=== PATIENT | male | born 1935 | race Caucasian/White ===

== ENCOUNTER 2016-08-02 09:08 | Outpatient (CLI) ==
[2016-07-28 16:08] VITALS: BMI 30.5
--- NOTE | 2016-08-08 10:40 | HOLTER ---
PATIENT INFORMATION AND COMMENTS Indications: PALPITATIONS __ Patient Medications: PENTASA, OMEPRAZOLE, PRAVASTATIN, SINGULAIR, DIGOXIN, METOPROLOL, LOSARTAN, FLUTICASONE, SPIRIVA __ Pre-procedure Summary: Protocol: Standard Heart Rate Started: 08/02/16918 Minimum: 50/MIN Weight: 226 LBS Ended: 08/03/16918 Maximum: 130/MIN Height: 72" Duration: 24 HOURS Average: 71 _ INTERPRETATIONS/OBSERVATIONS: 1. BASIC RHYTHM-SINUS, RATE 50/MIN TO 130/MIN, AVERAGE 70/MIN 2. INFREQUENT TO RARE PAC'S/PVC'S 3. EPISODE OF ATRIAL FLUTTER NOTED WITH VARYING DEGREE OF AV BLOCK FOR 4 TO 5 SECONDS 4. FEW--3 TO 6 RUNS OF 5 BEAT SVT/A-FIB NOTED 5. NO ST-T WAVE CHANGES FROM BASELINE 6. ACTIVITY LOG NOT MAINTAINED. MTDD
== END 2016-08-02 09:09 | disposition home or self-care (01) ==
LOC: CAR 09:08
PROVIDERS: ATTEND Family Medicine
DX: I10 Essential (primary) hypertension (principal); R07.9 Chest pain, unspecified; R00.2 Palpitations

== ENCOUNTER 2016-11-04 07:56 | Outpatient (CLI) ==
[2016-07-28 16:08] VITALS: BMI 30.5
--- NOTE | 2016-11-04 14:52 | NM ---
EXAM: Whole-body bone scan. HISTORY: The patient reports prostate cancer 10 years ago. The patient complains of severe neck ophelia n with no known injury. COMPARISON: None of this type. PROCEDURE: The patient was injected with 26.3 mCi of 99m technetium HDP intravenously. After an anival ropriate interval, whole-body anterior and posterior images were obtained. Additional spot images w ere obtained. FINDINGS: There is increased activity in the lower lumbar region primarily at the L4 level which by appearance is most likely to represent degenerative change. The thoracic and lumbar spine are otherw ise unremarkable in appearance for age. The ribcage is normal in appearance. There is increased act ivity in the acetabuli greater on the right which may also be associated with degenerative change. T he pelvic skeleton is otherwise normal in appearance. The kidneys and bladder demonstrate normal, p hysiologic activity. The lower extremeties demonstrate age appropriate activity in the major joints . In addition, there is increased activity in the right knee compatible with degenerative arthritis and around the margins of the patient's left knee prosthesis. Additional note is made of increased activity in the ankles and feet particularly in the right ankle. The upper extremeties demonstrate a ge appropriate levels of activity in the major joints. There is increased activity in the shoulders and sternoclavicular joints and first costosternal articulations, likely benign. There is relatively modest increased activity in the mid cervical spine which may be associated with degenerative garza e and also at the cervicothoracic junction. There is increased activity in the maxilla and mandible which is likely associated with dental disease. The calvarium and face otherwise demonstrate a jumana l distribution of activity. IMPRESSION: 1. The bone scan demonstrates typical age related degenerative changes in the thoracic and lumbar sp ine with greater activity seen in the lumbar region at the L4 level. 2. The examination demonstrates modestly increased activity in the acetabuli greater on the right wh ich may be due to degenerative change. There is additional evidence of degenerative arthritis in th e right knee and of relatively increased activity around the left knee prosthesis. This might indica te loosening in a symptomatic patient but is otherwise unremarkable as there is considerable variabi lity in the level of activity seen around prostheses based on time post surgery and other factors. 3. There is modest increased activity in the mid cervical spine at the cervicothoracic junction. Fu rther evaluation with MRI is suggested to attempt to identify a cause for the patient's severe neck pain. 4. Additional details are listed in the report. 5. No overtly metastatic lesion is identified.
== END 2016-11-04 07:57 | disposition home or self-care (01) ==
LOC: RAD 07:56
PROVIDERS: ATTEND Family Medicine
DX: S22.000A Wedge compression fracture of unspecified thoracic vertebra, initial encounter for closed fracture (principal)

== ENCOUNTER 2016-11-14 13:05 | Outpatient (CLI) | payer OTHER ==
[2016-07-28 16:08] VITALS: BMI 30.5
--- NOTE | 2016-11-14 21:55 | MRI ---
EXAM: Cervical spine MRI with and without contrast. HISTORY: Neck pain. Previous reports indicate a prostate cancer history 10 years ago. COMPARISON: Nuclear medicine bone scan 11/04/2016. TECHNIQUE: Multiplanar, multisequence MR images were acquired of the cervical spine before and afte r administration of intravenous contrast. FINDINGS: The craniocervical junction is unremarkable and the cervical cord has normal signal inten sity. There is no abnormal leptomeningeal contrast enhancement. There is straightening of the usua l cervical lordosis and 1 mm anterolisthesis of C3 on C4, 1 mm retrolisthesis of C5 on C6 and 1.5 mm anterolisthesis of C7 on T1. There is ankylosis of the C4 and C5 vertebral bodies and posterior el ements. Ventral spondylosis is present in the cervical spine and there is osteophytosis with disc s pace narrowing and degenerative endplate changes at C5-6 and C6-7. Canal diameter is developmentall y narrow. Incidentally noted is a venous tejeda in the right paramidline occipital bone with an arach noid granulation. This is a common normal finding. There are no paravertebral masses. There is a 2 .5 mm x 5 mm T2 hyperintensity in the left hypopharynx that may represent a small submucosal cyst. The left lobe of the thyroid gland has a 6 mm AP by 6.4 mm TX by 1 cm CC T2 hyperintensity and on th e right lobe has a 1.5 cm AP by 0.9 cm TX by 2 cm CC T2 hyperintensity. These may represent adenoma s. Thyroid ultrasound could better define the anatomy. C2-3: The intervertebral disc is normal. There is mild to moderate bilateral hypertrophic facet art hropathy and ligamentum flavum hypertrophy which causes mild to moderate right neural foraminal sten osis. There is no central canal stenosis. C3-4: There is a posterior disc osteophyte complex with the disc component larger than the osteophy te component. This minimally indents the cervical cord. Ligamentum flavum hypertrophy, bilateral u ncovertebral hypertrophy and moderate to marked left and moderate right hypertrophic facet arthropat hy is present. There is mild spinal stenosis and moderate right and moderately severe left neural f oraminal stenosis. AP diameter of the thecal sac is 9 mm. C4-5: There is a midline dorsal bony ridge which effaces the ventral thecal sac and mild right and moderate left hypertrophic facet arthropathy with ankylosis of both facet joints. There is mild to moderate right and moderate left neural foraminal stenosis. C5-6: There is a posterior disc osteophyte complex with a more focal left paracentral component bonnie t minimally indents the cervical cord although cerebrospinal fluid is preserved around the cord. Li gamentum flavum hypertrophy, bilateral uncovertebral hypertrophy and bilateral hypertrophic facet ar thropathy is present, greater on the right. There is moderate right and severe left neural foramina l stenosis. C6-7: There is a diffuse disc osteophyte complex, ligamentum flavum hypertrophy, minor left uncover tebral hypertrophy and minor right and mild left facet arthropathy. There is no central canal steno sis. Mild right and moderate left neural foraminal stenosis is present. C7-T1: The intervertebral disc is normal. There is anterolisthesis of C7 on T1 which causes a pseu do disc bulge. Bilateral hypertrophic facet arthropathy and bilateral synovial cysts are present. There is no central canal stenosis or foraminal stenosis. IMPRESSION: 1. Moderate cervical degenerative spondylosis which causes mild spinal stenosis at C3-4. 2. Ankylosis C4 and C5 vertebral bodies and post elements. 3. No cervical disc herniations. 4. Multilevel foraminal stenosis.
== END 2016-11-14 13:06 | disposition home or self-care (01) ==
LOC: RAD 13:05
PROVIDERS: ATTEND Family Medicine
DX: M54.2 Cervicalgia (principal); C61 Malignant neoplasm of prostate; R93.7 Abnormal findings on diagnostic imaging of other parts of musculoskeletal system

== ENCOUNTER 2017-05-10 09:40 | Emergency (ER) | payer OTHER ==
[2017-05-10 09:44] VITALS: BP 183/86; TEMP 98.3; BMI 29.8
--- NOTE | 2017-05-10 10:29 | ED.PDOC ---
General ED Provider: Dr. JULIET SUTTON Chief Complaint: Dizziness Stated Complaint: This AM after breakfast patient felt "odd" suddenly and had a sensation of something shooting across his head from above left ear to same spot above right ear. Not painful. Has felt weak since. No focal neurologic symptoms. No N/V. Has frequent (for him) watery stools (X3 in 24 hours) which he blames on ulcerative colitis. Abdoment is mildly sore, also typical with UC for him. Denies any other symptoms. Time Seen by Physician: 10:19 Mode of Arrival: Walk-In Information Source: Patient Exam Limitations: No limitations Primary Care Provider: NICK ARMENTA Nursing and Triage Documentation Reviewed and Agree: Yes Miscellaneous Complaint Exam - Complex/Multi-System Complaint/Exam Onset/Duration: approx 2 hours ago Symptoms Are: Still present (but lessened considerably) Initial Severity: Moderate Current Severity: Mild Location of Pain: no pain Associated Signs and Symptoms: Reports: Abdominal pain Related History: Other (ulcerative colitis, mildly active now) Recent Echo/LV Function: No Respiratory Distress: None JVD Present: No Tachypnea Present: No Stridor Present: No Abdominal Findings: Present: Normal findings (except mild generalized tenderness ) Meningeal Signs Positive: No Focal Weakness: Present: None Focal Sensory Loss: Present: None Gait: Normal Gag Reflex Present: Yes Babinski Sign: Negative Right, Negative Left Skin Findings: Present: Normal findings Joint Swelling Present: No In-Dwelling Device Present: No Differential Diagnosis: Other (Ulcerative colitis flare, viral syndrome) Review of Systems - Review Of Systems Constitutional: Reports: Weakness Eyes: Reports: No symptoms Ears, Nose, Mouth, Throat: Reports: No symptoms Respiratory: Reports: No symptoms Cardiac: Reports: No symptoms GI: Reports: Abdominal pain, Diarrhea (watery stools x3 in 24 hours) : Reports: No symptoms Musculoskeletal: Reports: No symptoms Skin: Reports: No symptoms Neurological: Reports: No symptoms All Other Systems: Reviewed and Negative Past Medical History - Past Medical History Previously Healthy: Yes Endocrine: Reports: Dyslipidemia Cardiovascular: Reports: Hypertension, CHF Respiratory: Reports: COPD Hematological: Reports: None Gastrointestinal: Reports: GERD, Other (ulcerative colitis) Genitourinary: Reports: None Neuro/Psych: Reports: None Musculoskeletal: Reports: Back Pain Cancer: Reports: None Other Pertinent Past Medical History: note repeat bp 154/84 - Surgical History General Surgical History: Reports: Tonsillectomy (TONSILLS, SINUS SURGERY), Orthopedic (RT ROTATOR CUFF, LEFT KNEE), Other (total prostatectomy) - Family History Family History: Reports: None - Social History Smoking Status: Former smoker Hx Substance Use: No Alcohol Screening: None Lives: Alone - Immunizations Tetanus Shot up to Date: No Influenza Vaccine within 12 Months: No Pneumococcal Vaccine up to Date: No Physical Exam - Physical Exam Appearance: Well-appearing, No pain distress, Well-nourished Ill-appearing: None Pain Distress: None Eyes: MARK, EOMI, Conjunctiva clear ENT: Ears normal, Nose normal, Oropharynx normal Neck: Supple Respiratory: Airway patent, Breath sounds clear, Breath sounds equal, Respirations nonlabored Cardiovascular: RRR, Pulses normal, No rub, No murmur GI/: Soft, No masses, Bowel sounds normal, No Organomegaly, Tender (mild generalized tenderness) Musculoskeletal: Normal strength, ROM intact, No edema, No calf tenderness Skin: Warm Neurological: Sensation intact, Motor intact, Reflexes intact, Cranial nerves intact, Alert, Oriented Psychiatric: Affect appropriate, Mood appropriate Interpretation - Radiology Interpretation Radiology Interpretation By: Radiologist Radiology Results: No acute changes Exam Interpreted: CT Scan Xray Comments: head: nothing acute - EKG Interpretation Time of EKG #1: 10:13 Rate: Normal Rhythm: Sinus Ectopy: None [place]: NL ST Segment: Normal Interpretation: WNL Critical Care Note - Critical Care Note Total Time (mins): 0 Course - Course Hematology/Chemistry: 05/10/17 10:05 05/10/17 10:05 Orders, Labs, Meds: Lab Review 05/10/17 05/10/17 05/10/17 10:05 10:05 11:15 WBC 10.80 H RBC 4.38 L Hgb 13.6 L Hct 39.2 L MCV 89.5 MCH 31.1 H MCHC 34.7 RDW Coeff of Kevin 12.6 Plt Count 323 Immature Gran % (Auto) 0.5 Neut % (Auto) 65.9 Lymph % (Auto) 18.0 Iron % (Auto) 8.7 Eos % (Auto) 5.8 Baso % (Auto) 1.1 Immature Gran # (Auto) 0.1 Neut # 7.1 H Lymph # 1.9 Iron # 0.9 Eos # 0.6 Baso # 0.1 Sodium 140 Potassium 3.8 Chloride 107 Carbon Dioxide 22 L Anion Gap 14.8 BUN 11 Creatinine 0.97 Estimated GFR (MDRD) 74.00 BUN/Creatinine Ratio 11.34 Glucose 123 H Calcium 9.7 Total Bilirubin 0.67 AST 25 ALT 16 Alkaline Phosphatase 76 Total Creatine Kinase 44 Troponin I < 0.0100 Total Protein 7.5 Albumin 3.4 Globulin 4.1 Albumin/Globulin Ratio 0.83 Urine Color Yellow Urine Clarity Clear Urine pH 7.0 Ur Specific [place] 1.010 Urine Protein Negative Urine Glucose (UA) Negative Urine Ketones Negative Urine Blood Negative Urine Nitrite Negative Urine Bilirubin Negative Urine Urobilinogen 0.2 Ur Leukocyte Esterase Negative Orders Category Date Time Status EKG-(ED ONLY) Stat CARDIO 05/10/17 10:37 Completed EKG-(ED ONLY) Stat CARDIO 05/10/17 10:48 Completed CBC W/ AUTO DIFF Stat LAB 05/10/17 10:05 Completed CK [CREATINE KINASE] Stat LAB 05/10/17 10:05 Completed COMPREHENSIVE METABOLIC PANEL Stat LAB 05/10/17 10:05 Completed TROPONIN I Stat LAB 05/10/17 10:05 Completed URINALYSIS C & S IF INDICATED Stat LAB 05/10/17 11:[address] HEAD W/O CONTRAST Stat RADS 05/10/17 10:54 Completed Vital Signs: Temp Pulse Resp BP Pulse Ox 05/10/17 09:40 98.3 F 67 20 183/86 H 95 Departure - Departure Time of Disposition: 11:36 Disposition: HOME SELF-CARE Discharge Problem: Lightheadedness Instructions: Lightheadedness (ED) Condition: Good Pt referred to PMD for follow-up: No (if no better in 3 days, see doctor) Allergies/Adverse Reactions: Allergies Penicillins Allergy (Mild, Verified 05/10/17 09:46) Anaphylaxis Home Medications: Ambulatory Orders Mesalamine [Pentasa] 500 mg PO BID 04/02/14 Bromfenac Sodium 2.5 ml OP BID 01/21/15 Digoxin [Lanoxin] 125 mcg PO DAILY 01/21/15 Garlic 100 mg PO DAILY 01/21/15 Metoprolol Tartrate [Lopressor] 37.5 mg PO DAILY 01/21/15 Montelukast Sodium [Singulair] 10 mg PO BEDTIME 01/21/15 Omeprazole [Prilosec] 40 mg PO QDAC 01/21/15 Pravastatin Sodium [Pravachol] 40 mg PO BEDTIME 01/21/15 Albuterol Sulfate [Proair Hfa] 2 puff IH Q4H PRN 07/28/16 Aspirin [Aspirin EC] 81 mg PO DAILYWM 07/28/16 Azelastine HCl [Astelin 0.1%] 1 spray NS BID 07/28/16 Diphenhydramine HCl [Benadryl] 25 mg PO DAILY 07/28/16 Fluticasone Propionate [Flovent Diskus] 50 mcg IH BID 07/28/16 L.acidoph,Paracasei, B.lactis [Probiotic] 1 each PO DAILY PRN 07/28/16 Tiotropium [place] [Spiriva] 1 cap IH DAILY PRN 07/28/16 Lisinopril [Zestril] 20 mg PO DAILY 05/10/17 Disposition Discussed With: Patient
[2017-05-10 10:54] LABS: ALANINE AMINOTRANSFERASE 16 U/L (12-78); ALBUMIN 3.4 g/dL (3.4-5.0); ALBUMIN/GLOBULIN RATIO 0.83; ALKALINE PHOSPHATASE 76 U/L (56-119); ANION GAP 14.8; ASPARTATE AMINO TRANSFERASE 25 U/L (15-37); BILIRUBIN,TOTAL 0.67 mg/dL (0.00-1.20); BLOOD UREA NITROGEN 11 mg/dL (7-18); BUN/CREATININE RATIO 11.34; CALCIUM 9.7 mg/dL (8.2-10.2); CARBON DIOXIDE 22 mmol/L (23-31); CHLORIDE 107 mmol/L (98-107); CREATINE KINASE 44 U/L; CREATININE 0.97 mg/dL (0.60-1.10); GLUCOSE 123 mg/dL (82-115); POTASSIUM 3.8 mmol/L (3.5-5.1); SODIUM 140 mmol/L (136-145); TOTAL PROTEIN 7.5 g/dL (5.8-8.1)
[2017-05-10 10:56] LABS: BASOPHILS # (AUTO) 0.1 K/uL (0-0.2); BASOPHILS % (AUTO) 1.1 % (0.0-3.0); EOSINOPHILS # (AUTO) 0.6 K/ul (0.0-0.7); EOSINOPHILS % (AUTO) 5.8 % (0.0-7.0); HEMATOCRIT 39.2 % (42.0-52.0); HEMOGLOBIN 13.6 g/dl (14.0-18.0); IMMATURE GRANULOCYTE % (AUTO) 0.5 % (0.0-5.0); LYMPHOCYTES # (AUTO) 1.9 K/uL (0.60-3.4); MEAN CORPUSCULAR HEMOGLOBIN 31.1 pg (27.0-31.0); MEAN CORPUSCULAR HGB CONC 34.7 (31.8-35.4); MEAN CORPUSCULAR VOLUME 89.5 fl (80.0-94.0); MONOCYTES # (AUTO) 0.9 K/uL (0.4-2.0); MONOCYTES % (AUTO) 8.7 (0-10); NEUTROPHILS # (AUTO) 7.1 K/ul (2.0-6.9); NEUTROPHILS % (AUTO) 65.9; PLATELET COUNT 323 10^3/uL (140-440); RED BLOOD COUNT 4.38 10^6/ul (4.70-6.10)
[2017-05-10 11:21] LABS: BILIRUBIN,URINE Negative (NEGATIVE); KETONES,URINE Negative (NEGATIVE); LEUKOCYTE ESTERASE ,URINE Negative (NEGATIVE); NITRITE,URINE Negative (NEGATIVE); PROTEIN,URINE Negative (NEGATIVE); URINE, BLOOD Negative (NEGATIVE)
[2017-05-10 11:23] LABS: ADD URINE MICROSCOPIC NO
--- NOTE | 2017-05-10 11:30 | CT ---
Exam: CT of the brain without intravenous contrast. Comparison: 01/21/2015. Reason for exam: Sensation of something shooting across the head. FINDINGS: No acute intracranial hemorrhage, mass effect, ventricular dilatation, or territorial infarction. Th e quadrigeminal and ambient cisterns are patent. There is no extraaxial fluid collection. The antoinette rium is intact. The paranasal sinuses are unopacified. There is similar appearing nonopacification of the left mastoid air cells likely chronic. Parenchymal changes are seen consistent with chronic m icrovascular disease and parenchymal age related atrophy. Impression: 1. No acute intracranial findings. 2. Parenchymal changes consistent with microvascular disease and age related atrophy.
== END 2017-05-10 12:12 | disposition home or self-care (01) ==
LOC: ED 09:40
DX: R42 Dizziness and giddiness (principal); R53.1 Weakness; K51.90 Ulcerative colitis, unspecified, without complications; E78.5 Hyperlipidemia, unspecified; I10 Essential (primary) hypertension; I50.9 Heart failure, unspecified; J44.9 Chronic obstructive pulmonary disease, unspecified; K21.9 Gastro-esophageal reflux disease without esophagitis; Z79.899 Other long term (current) drug therapy
CPT/HCPCS: 36415; 80053; 81001; 82550; 84484; 85025; 93005; 93010; 99283

== ENCOUNTER 2017-07-14 08:53 | Outpatient (CLI) ==
--- NOTE | 2017-07-14 09:37 | DI ---
EXAM: Chest two view, frontal and lateral views. HISTORY: Cough. COMPARISON: 07/28/2016. FINDINGS: The heart size is normal. There is no pulmonary vascular congestion. The lungs are clear . No pleural effusion or pneumothorax is seen. No acute osseous abnormality identified. Since the prior study, there has been no significant interval change. IMPRESSION: No acute cardiopulmonary process.
== END 2017-07-14 08:54 | disposition home or self-care (01) ==
LOC: RAD 08:53
PROVIDERS: ATTEND Family Medicine
DX: R05 Cough (principal)

== ENCOUNTER 2017-08-15 15:51 | Outpatient (CLI) ==
--- NOTE | 2017-08-15 16:20 | DI ---
EXAM: Chest two views HISTORY: Cough COMPARISON: 07/14/2017 TECHNIQUE: Two views of the chest were performed FINDINGS: The lungs are clear. Lungs are hyperinflated. There is no pleural effusion or pneumothorax . The heart is normal in size. The mediastinal contour is normal. There are no acute abnormalities of the bones. IMPRESSION: 1. No acute cardiopulmonary process. 2. Hyperinflated lungs may suggest chronic obstructive pulmonary disease.
== END 2017-08-15 15:52 | disposition home or self-care (01) ==
LOC: RAD 15:51
PROVIDERS: ATTEND Family Medicine
DX: I48.2 Chronic atrial fibrillation (principal); R05 Cough
CPT/HCPCS: 36415; 80162; 85025

== ENCOUNTER 2018-03-16 09:17 | Outpatient (CLI) | payer OTHER ==
--- NOTE | 2018-03-16 10:36 | DI ---
EXAM: Chest two view, frontal and lateral views. HISTORY: Cough. COMPARISON: 08/15/2017. FINDINGS: The heart size is normal. There is no pulmonary vascular congestion. The lungs are clear . Bilateral nipple shadows noted, similar to prior study. No pleural effusion or pneumothorax is se en. No acute osseous abnormality identified. Since the prior study, there has been no significant i nterval change. IMPRESSION: No acute cardiopulmonary process.
== END 2018-03-16 09:18 | disposition home or self-care (01) ==
LOC: RAD 09:17
PROVIDERS: ATTEND Family Medicine
DX: R79.9 Abnormal finding of blood chemistry, unspecified (principal); R30.0 Dysuria; R05 Cough
CPT/HCPCS: 81001; 87086

== ENCOUNTER 2018-10-14 10:32 | Emergency (ER) | payer OTHER ==
[2018-10-14] MEDS ORDERED: ZOFRAN 4 MG/2 ML IVP STA (11:01)
--- NOTE | 2018-10-14 11:02 | ED.PDOC ---
General ED Provider: Dr. NICK BOLANOS Chief Complaint: Nausea/Vomiting Stated Complaint: Nausea and vomiting. Pt has history of ulcerative colitis and has had diarrhea for aprox 1 month. Had been put on Imuran. Diarrhea has gotten better in past couple days. Last monday started vomiting, daughter had also been sick with vomiting. Vomitng only lasted one day. Now has body aches and weakness, productive cough with yellow sputum Time Seen by Physician: 10:55 Mode of Arrival: Wheelchair Information Source: Patient, Family Exam Limitations: No limitations Primary Care Provider: NICK ARMENTA Nursing and Triage Documentation Reviewed and Agree: Yes Does patient meet sepsis criteria?: No System Inflammatory Response Syndrome: Not Applicable Sepsis Protocol: For patient's 13 years and over: Temp is 96.8 and below OR 101 and greater Pulse >90 BPM Resp >20/minute Acutely Altered Mental Status Are patient's symptoms suggestive of a new infection, such as: -Pneumonia -Skin, Soft Tissue -Endocarditis -UTI -Bone, Joint Infection -Implantable Device -Acute Abdominal Infection -Wound Infection -Meningitis -Blood Stream Catheter Infection -Unknown GI Complaint Exam - Vomiting/Diarrhea Complaint/Exam Onset/Duration: several weeks Initial Severity: Moderate Current Severity: Severe Character of Vomiting: Reports: Bilious Character of Diarrhea: Reports: Watery Aggravating: Reports: Liquids Alleviating: Reports: Medications Associated Signs and Symptoms: Reports: Dizziness, Light-headedness, Abdominal pain (generalized aching) Last Oral Intake: last pm Last Bowel Movement: Unsure Surgical Obstruction Risk Factors: Reports: None Related Surgical History: Reports: None Abdominal Findings: Present: Abdominal distention Differential Diagnoses: Viral Gastroenteritis, Bacterial Gastroenteritis, Other (sepsis) Review of Systems - Review Of Systems Constitutional: Reports: No symptoms, Chills, Weakness, Loss of appetite Eyes: Reports: No symptoms Ears, Nose, Mouth, Throat: Reports: No symptoms Respiratory: Reports: No symptoms Cardiac: Reports: No symptoms GI: Reports: No symptoms, Abdominal pain, Diarrhea, Nausea, Poor appetite, Poor fluid intake : Reports: No symptoms Musculoskeletal: Reports: No symptoms, Back pain, Joint pain, Muscle pain, Muscle stiffness Skin: Reports: No symptoms Neurological: Reports: No symptoms Endocrine: Reports: No symptoms Hematologic/Lymphatic: Reports: No symptoms All Other Systems: Reviewed and Negative Past Medical History - Past Medical History Previously Healthy: Yes Endocrine: Reports: Dyslipidemia Cardiovascular: Reports: Hypertension, CHF Respiratory: Reports: COPD Hematological: Reports: None Gastrointestinal: Reports: GERD, Other (ulcerative colitis) Genitourinary: Reports: None Neuro/Psych: Reports: None Musculoskeletal: Reports: Back Pain Cancer: Reports: None Other Pertinent Past Medical History: note repeat bp 154/84 - Surgical History General Surgical History: Reports: Tonsillectomy (TONSILLS, SINUS SURGERY), Orthopedic (RT ROTATOR CUFF, LEFT KNEE), Other (total prostatectomy) - Family History Family History: Reports: None - Social History Smoking Status: Former smoker Hx Substance Use: No Alcohol Screening: None - Immunizations Influenza Vaccine within 12 Months: No Pneumococcal Vaccine up to Date: No Physical Exam - Physical Exam Appearance: Ill-appearing, Obese Ill-appearing: Severe Pain Distress: Moderate Eyes: MARK, EOMI, Conjunctiva clear ENT: Ears normal, Nose normal, Oropharynx normal Neck: Supple Respiratory: Airway patent, Breath sounds clear, Breath sounds equal, Breath sounds diminished, Respirations nonlabored Cardiovascular: RRR, Pulses normal, No rub, No murmur GI/: Soft, Nontender, No masses, Bowel sounds normal, No Organomegaly Musculoskeletal: Normal strength, ROM intact, No edema, No calf tenderness Skin: Warm, Dry, Normal color Neurological: Sensation intact, Motor intact, Reflexes intact, Cranial nerves intact, Alert, Oriented Psychiatric: Affect appropriate, Mood appropriate Physician Notification - Case Discussed Physician Notified: Dr Segura Time of Notification: 13:45 (Transfer to [facility] ICU-Dr Negro) Critical Care Note - Critical Care Note Total Time (mins): 120 Course - Course Hematology/Chemistry: 10/14/18 11:15 10/14/18 11:15 Orders, Labs, Meds: Lab Review 10/14/18 10/14/18 10/14/18 11:00 11:15 11:15 WBC 34.74 H RBC 3.53 L Hgb 11.0 L Hct 32.5 L MCV 92.1 MCH 31.2 H MCHC 33.8 RDW Coeff of Kevin 13.5 Plt Count 417 Neutrophils % (Manual) 51.0 Band Neutrophils % 31.0 H Lymphocytes % (Manual) 6.0 L Monocytes % (Manual) 6.0 Eosinophils % (Manual) 1.0 Metamyelocytes % 3.0 H Myelocytes % 2.0 H Plt Morphology Comment Increased Anisocytosis Not present RBC Morph Comment Normal Puncture Site O2 Saturation ABG pH ABG pCO2 ABG pO2 ABG HCO3 ABG Total CO2 ABG Base Excess Francisco Javier Test FiO2 % Sodium 128.0 L Potassium 4.28 Chloride 94.3 L Carbon Dioxide 21.1 L Anion Gap 16.88 BUN 46.4 H Creatinine 3.17 H Estimated GFR (MDRD) 19.00 BUN/Creatinine Ratio 14.63 Glucose 112.4 H Lactic Acid Uric Acid 8.71 H Calcium 8.67 Total Bilirubin 0.69 AST 66.6 H ALT 27.2 Alkaline Phosphatase 98.2 Troponin I 0.047 Total Protein 6.39 Albumin 3.06 L Globulin 3.33 Albumin/Globulin Ratio 0.91 Amylase 41.1 Lipase 61.8 Procalcitonin Digoxin Influ A Molecular Assay Negative by naat Influ B Molecular Assay Negative by naat 10/14/18 10/14/18 10/14/18 11:15 11:15 11:15 WBC RBC Hgb Hct MCV MCH MCHC RDW Coeff of Kevin Plt Count Neutrophils % (Manual) Band Neutrophils % Lymphocytes % (Manual) Monocytes % (Manual) Eosinophils % (Manual) Metamyelocytes % Myelocytes % Plt Morphology Comment Anisocytosis RBC Morph Comment Puncture Site O2 Saturation ABG pH ABG pCO2 ABG pO2 ABG HCO3 ABG Total CO2 ABG Base Excess Francisco Javier Test FiO2 % Sodium Potassium Chloride Carbon Dioxide Anion Gap BUN Creatinine Estimated GFR (MDRD) BUN/Creatinine Ratio Glucose Lactic Acid 2.18 H Uric Acid Calcium Total Bilirubin AST ALT Alkaline Phosphatase Troponin I Total Protein Albumin Globulin Albumin/Globulin Ratio Amylase Lipase Procalcitonin 6.90 Digoxin 0.72 L Influ A Molecular Assay Influ B Molecular Assay 10/14/18 13:33 WBC RBC Hgb Hct MCV MCH MCHC RDW Coeff of Kevin Plt Count Neutrophils % (Manual) Band Neutrophils % Lymphocytes % (Manual) Monocytes % (Manual) Eosinophils % (Manual) Metamyelocytes % Myelocytes % Plt Morphology Comment Anisocytosis RBC Morph Comment Puncture Site R radial O2 Saturation 87.0 L ABG pH 7.367 ABG pCO2 30.4 L ABG pO2 54.0 L* ABG HCO3 17.4 L ABG Total CO2 18 L ABG Base Excess -8 L Francisco Javier Test + FiO2 % 21.0 Sodium Potassium Chloride Carbon Dioxide Anion Gap BUN Creatinine Estimated GFR (MDRD) BUN/Creatinine Ratio Glucose Lactic Acid Uric Acid Calcium Total Bilirubin AST ALT Alkaline Phosphatase Troponin I Total Protein Albumin Globulin Albumin/Globulin Ratio Amylase Lipase Procalcitonin Digoxin Influ A Molecular Assay Influ B Molecular Assay Orders Category Date Time Status ABG DRAW REQUEST Stat CARDIO 10/14/18 13:33 Completed EKG-(ED ONLY) Stat CARDIO 10/14/18 12:48 Completed OXYGEN Routine CARDIO 10/14/18 13:32 Ordered NPO REMINDER: IMAGING ONCE CARE 10/14/18 11:00 Active IV [ED IV/MEDIPORT/POWERPORT] .ONCE EMERGENCY 10/14/18 13:34 Active ABG Stat LAB 10/14/18 13:33 Completed AMYLASE Stat LAB 10/14/18 11:15 Completed BLOOD CULTURE Stat LAB 10/14/18 12:00 Received CBC W/ AUTO DIFF Stat LAB 10/14/18 11:15 Completed CMP [COMPREHENSIVE METABOLIC PANEL] Stat LAB 10/14/18 11:15 Completed DIGOXIN Stat LAB 10/14/18 11:15 Completed FLU A & B MOLECULAR [FLU A/B MOLECULAR] Stat LAB 10/14/18 11:00 Completed LACTIC ACID Stat LAB 10/14/18 11:15 Completed LIPASE Stat LAB 10/14/18 11:15 Completed MANUAL DIFFERENTIAL Stat LAB 10/14/18 11:15 Completed PROCALCITONIN Stat LAB 10/14/18 11:15 Completed RAPID STREP SCREEN [MOLECULAR GROUP A STREP] Stat LAB 10/14/18 11:00 Completed TROPONIN I Stat LAB 10/14/18 11:15 Completed URIC ACID Stat LAB 10/14/18 11:15 Completed 0.9 % Sodium Chloride [Saline Flush] MEDS 10/14/18 13:34 Discontinued 1 syr IVF PRN PRN Ceftriaxone Sodium [Rocephin] MEDS 10/14/18 12:18 Discontinued 1 gm .ROUTE .STK-MED ONE Ceftriaxone Sodium [Rocephin] 1 gm MEDS 10/14/18 12:15 Discontinued 0.9 % Sodium Chloride [Sodium Chloride] 50 ml IV ONCE Digoxin Inj [Lanoxin] MEDS 10/14/18 13:45 Discontinued 125 mcg IVP ONCE STA Ondansetron HCl/Pf [Zofran 4 mg/2 ml] MEDS 10/14/18 11:01 Discontinued 4 mg IVP ONCE STA Sodium Chloride 0.9% [Sodium Chloride] 1,000 ml MEDS 10/14/18 11:26 Discontinued IV BOLUS Sodium Chloride 0.9% [Sodium Chloride] 1,000 ml MEDS 10/14/18 12:00 Discontinued IV BOLUS CHEST, 1V AP ONLY Stat RADS 10/14/18 12:08 Completed Medications Discontinued Medications Generic Name Dose Route Start Last Admin Trade Name Freq PRN Reason Stop Dose Admin Digoxin 125 mcg 10/14/18 13:45 10/14/18 13:58 Lanoxin IVP 10/14/18 13:46 125 mcg ONCE STA Administration Sodium Chloride 1,000 mls @ 1,000 mls/hr 10/14/18 11:26 10/14/18 11:32 Sodium Chloride IV 10/14/18 12:25 1,000 mls/hr BOLUS STA Administration Sodium Chloride 1,000 mls @ 1,000 mls/hr 10/14/18 12:00 10/14/18 12:02 Sodium Chloride IV 10/14/18 12:59 1,000 mls/hr BOLUS STA Administration Ceftriaxone Sodium 1 gm/ 50 mls @ 75 mls/hr 10/14/18 12:15 10/14/18 12:22 Sodium Chloride IV 10/14/18 12:54 75 mls/hr ONCE STA Administration Ondansetron HCl 4 mg 10/14/18 11:01 10/14/18 11:32 Zofran 4 Mg/2 Ml IVP 10/14/18 11:02 4 mg ONCE STA Administration Sodium Chloride 1 syr 10/14/18 13:34 10/14/18 13:58 Saline Flush IVF 1 syr PRN PRN Administration To flush IV Vital Signs: Temp Pulse Resp BP Pulse Ox 10/14/18 14:01 97.8 F 144 H 18 109/71 97 10/14/18 13:58 142 H 10/14/18 10:34 98.9 F 93 H 20 90/56 L 93 L Departure - Departure Time of Disposition: 13:35 Disposition: TSF SHORT-TRM HOSP Discharge Problem: Septicemia, Left lower lobe pneumonia, Acute kidney failure, Ulcerative colitis Instructions: Hypotension (ED) Condition: Serious Pt referred to PMD for follow-up: Yes IPMP verified?: No Additional Instructions: DISCUSSED WITH DR NIA MCCLURE WITH TRANSFER TO [facility] ICU Allergies/Adverse Reactions: Allergies Penicillins Allergy (Mild, Verified 10/14/18 10:39) Anaphylaxis Home Medications: Ambulatory Orders Mesalamine [Pentasa] 500 mg PO BID 04/02/14 Digoxin [Lanoxin] 125 mcg PO DAILY 01/21/15 Garlic 100 mg PO DAILY 01/21/15 Metoprolol Tartrate [Lopressor] 25 mg PO TID 01/21/15 Montelukast Sodium [Singulair] 10 mg PO BEDTIME 01/21/15 Omeprazole [Prilosec] 40 mg PO QDAC 01/21/15 Pravastatin Sodium [Pravachol] 40 mg PO BEDTIME 01/21/15 Aspirin [Aspirin EC] 81 mg PO DAILYWM 07/28/16 Azelastine HCl [Astelin 0.1%] 1 spray NS BID 07/28/16 Budesonide/Formoterol Fumarate [Symbicort 160-4.5 Mcg Inhaler] 10.2 gm IH BID Azathioprine [Imuran] 50 mg PO DAILY 10/14/18 Cranberry Conc/C/Bacill Coag [Cranberry Tablet] 1 each PO DAILY 10/14/18 Losartan Potassium [Cozaar] 50 mg PO DAILY 10/14/18 Transfer Form Completed: Yes Disposition Discussed With: Patient, Family
[2018-10-14 11:25] VITALS: BMI 29.7
[2018-10-14] MEDS ORDERED: SODIUM CHLORIDE 1,000 ML IV STA ×3 (11:26→14:30)
[2018-10-14] MEDS ORDERED: ROCEPHIN 1 GM in SODIUM CHLORIDE 50 ML IV STA (12:15)
[2018-10-14] MEDS ORDERED: ROCEPHIN ONE (12:18)
--- NOTE | 2018-10-14 13:00 | DI ---
EXAM: Single view chest COMPARISON: Chest x-ray from 03/16/2018 HISTORY: Congestion with high white count FINDINGS: There is a somewhat linear area of air space density in the left lung base. Lungs are oth erwise clear. There is no large effusion. Cardiac and mediastinal silhouettes show no acute abnorma lity. No acute soft tissue or osseous abnormalities. IMPRESSION: 1. Infiltrate left base probably combination of pneumonia and atelectasis.
[2018-10-14] MEDS ORDERED: LANOXIN IVP STA (13:45)
[2018-10-14 14:02] VITALS: BP 109/71; TEMP 97.8
== END 2018-10-14 14:15 | disposition short-term general hospital (02) ==
LOC: ED 10:32
DX: R11.2 Nausea with vomiting, unspecified (principal); R19.7 Diarrhea, unspecified; R53.1 Weakness; R05 Cough; R42 Dizziness and giddiness; R10.9 Unspecified abdominal pain; A41.9 Sepsis, unspecified organism; J18.1 Lobar pneumonia, unspecified organism; N17.9 Acute kidney failure, unspecified; K51.90 Ulcerative colitis, unspecified, without complications
CPT/HCPCS: 36415; 80053; 80162; 82150; 82803; 83605; 83690; 84145; 84484; 84550; 85007; 85025; 87040; 87502; 87651; 93005; 93010; 96361; 96365; 96375; 99285

== ENCOUNTER 2018-11-11 10:36 | Emergency (ER) | payer OTHER ==
[2018-11-11 10:46] VITALS: BP 118/77; TEMP 99.9
[2018-11-11] MEDS ORDERED: DUONEB NEB STA (11:09)
--- NOTE | 2018-11-11 11:11 | ED.PDOC ---
General ED Provider: Dr. CARLOS A HERNANDEZ Chief Complaint: Shortness of Air Stated Complaint: Patient was discharged from [facility] where he had been admitted for Ulcerative Colitis he was diagnosed with multiple DVT's placed on heparin and discharged home on xarolto 10mg which he took lastk night. He state that he woke last night with cough productive of yellow and white sputum but not blood. Has a history of Stage 2 COPD and quit smoking when he was 28. He started becoming short of air this morning but denies any chest pain. states he just can't get enough air. does not use oxygen at home. Oxygen saturation was 88% on room air in the triage. Time Seen by Physician: 11:08 Mode of Arrival: Wheelchair Information Source: Patient Exam Limitations: No limitations Primary Care Provider: NICK ARMENTA Nursing and Triage Documentation Reviewed and Agree: Yes Does patient meet sepsis criteria?: No System Inflammatory Response Syndrome: Not Applicable Sepsis Protocol: For patient's 13 years and over: Temp is 96.8 and below OR 101 and greater Pulse >90 BPM Resp >20/minute Acutely Altered Mental Status Are patient's symptoms suggestive of a new infection, such as: -Pneumonia -Skin, Soft Tissue -Endocarditis -UTI -Bone, Joint Infection -Implantable Device -Acute Abdominal Infection -Wound Infection -Meningitis -Blood Stream Catheter Infection -Unknown Respiratory Complaint Exam - Shortness of Air Complaint/Exam Onset/Duration: 6 hours Symptoms Are: Still present Timing: Constant Initial Severity: Moderate Current Severity: Moderate Character: Reports: Dyspnea at rest Aggravating: Reports: None Associated Signs and Symptoms: Reports: Cough, Edema (lower extremities ) Pulmonary Embolism Risk Factors: Reports: Recent travel, DVT Pseudomonas Risk Factors: Reports: Chronic Lung Disease Home Oxygen Use: No Recent Stress Test: No Respiratory Distress: Moderate Stridor Present: No Tracheal Deviation: No Subcutaneous Emphysema: No Accessory Muscle Use: No Retractions: Not Present Diminished Breath Sounds: Yes (on the right lung) Fatigue: No Leg Swelling: No Medardo's Sign Present: No Grunting Respirations: No Kussmaul Respirations: No Differential Diagnoses: COPD Exacerbation, Pneumonia, Pneumothorax Quality Indicator For Non-Traumatic Chest Pain/Syncope: EKG Performed Quality Indicators For Pneumonia/CAP: Blood Cultures-SCU admit, Antibiotics in 6hr-admit, Empiric Antibiotic Rx, Vital signs Review of Systems - Review Of Systems Constitutional: Reports: No symptoms Eyes: Reports: No symptoms Ears, Nose, Mouth, Throat: Reports: No symptoms Respiratory: Reports: Cough, Short of air Cardiac: Denies: Chest pain GI: Reports: No symptoms : Reports: No symptoms Musculoskeletal: Reports: No symptoms Skin: Reports: No symptoms Neurological: Reports: Anxiety Endocrine: Reports: No symptoms Hematologic/Lymphatic: Reports: No symptoms All Other Systems: Reviewed and Negative Past Medical History - Past Medical History Previously Healthy: Yes Endocrine: Reports: Dyslipidemia Cardiovascular: Reports: Hypertension, CHF Respiratory: Reports: COPD Hematological: Reports: None Gastrointestinal: Reports: GERD, Other (ulcerative colitis) Genitourinary: Reports: None Neuro/Psych: Reports: None Musculoskeletal: Reports: Back Pain Cancer: Reports: None Other Pertinent Past Medical History: note repeat bp 154/84 - Surgical History General Surgical History: Reports: Tonsillectomy (TONSILLS, SINUS SURGERY), Orthopedic (RT ROTATOR CUFF, LEFT KNEE), Other (total prostatectomy) - Family History Family History: Reports: None - Social History Smoking Status: Former smoker Hx Substance Use: No Alcohol Screening: None - Immunizations Influenza Vaccine within 12 Months: No Pneumococcal Vaccine up to Date: No Physical Exam - Physical Exam Appearance: Ill-appearing Ill-appearing: Severe Pain Distress: None Eyes: MARK, EOMI, Conjunctiva clear Neck: Supple Respiratory: Breath sounds diminished (on the right) Cardiovascular: Tachycardia GI/: Soft Skin: Warm (brusing on the abdomen. ) Neurological: Sensation intact, Motor intact, Cranial nerves intact, Alert, Oriented Psychiatric: Anxious Interpretation - Radiology Interpretation Radiology Interpretation By: ED Physician Radiology Results: Positive Exam Interpreted: Other (Left lobar Pneumona, Right pneumothorax ) - EKG Interpretation Time of EKG #1: 11:22 Rate: Tachy Rhythm: Sinus Ectopy: PVCs [place]: NL Interpretation: Sinus Tachycardia Physician Notification - Case Discussed Physician Notified: Sahil Armenta Gandi, Johnson Time of Notification: 12:00 Physician Notified: James Time of Notification: 15:00 (will see in consult.) Critical Care Note - Critical Care Note Total Time (mins): 70 Course - Course Hematology/Chemistry: 11/11/18 11:28 11/11/18 11:28 Orders, Labs, Meds: Lab Review 11/11/18 11/11/18 11/11/18 11:06 11:28 11:28 WBC 31.33 H RBC 3.36 L Hgb 10.9 L Hct 32.7 L MCV 97.3 H MCH 32.4 H MCHC 33.3 RDW Coeff of Kevin 17.8 H Plt Count 195 Neutrophils % (Manual) 83.0 H Band Neutrophils % 5.0 Lymphocytes % (Manual) 8.0 L Monocytes % (Manual) 4.0 Anisocytosis Not present PT INR APTT D-Dimer (Manual) Puncture Site Rrad O2 Saturation 91.0 L ABG pH 7.534 H* ABG pCO2 23.4 L ABG pO2 53.0 L* ABG HCO3 19.8 L ABG Total CO2 20 L ABG Base Excess -3 L Francisco Javier Test + FiO2 % 21.0 Sodium 137.3 Potassium 4.24 Chloride 106.5 Carbon Dioxide 25.1 Anion Gap 9.94 BUN 28.5 H Creatinine 1.22 H Estimated GFR (MDRD) 57.00 BUN/Creatinine Ratio 23.36 Glucose 89.5 Lactic Acid Calcium 8.57 Magnesium 1.80 Total Bilirubin 1.49 H AST 32.1 ALT 74.0 H Alkaline Phosphatase 170.3 H Total Creatine Kinase 22.4 L Troponin I 0.049 NT-Pro-B Natriuret Pep 1990.000 H Total Protein 5.43 L Albumin 3.08 L Globulin 2.35 Albumin/Globulin Ratio 1.31 Procalcitonin 11/11/18 11/11/18 11/11/18 11:28 11:50 11:50 WBC RBC Hgb Hct MCV MCH MCHC RDW Coeff of Kevin Plt Count Neutrophils % (Manual) Band Neutrophils % Lymphocytes % (Manual) Monocytes % (Manual) Anisocytosis PT 10.1 INR 1.01 APTT 22.1 L D-Dimer (Manual) Puncture Site O2 Saturation ABG pH ABG pCO2 ABG pO2 ABG HCO3 ABG Total CO2 ABG Base Excess Francisco Javier Test FiO2 % Sodium Potassium Chloride Carbon Dioxide Anion Gap BUN Creatinine Estimated GFR (MDRD) BUN/Creatinine Ratio Glucose Lactic Acid 2.66 H Calcium Magnesium Total Bilirubin AST ALT Alkaline Phosphatase Total Creatine Kinase Troponin I NT-Pro-B Natriuret Pep Total Protein Albumin Globulin Albumin/Globulin Ratio Procalcitonin 3.83 11/11/18 11:50 WBC RBC Hgb Hct MCV MCH MCHC RDW Coeff of Kevin Plt Count Neutrophils % (Manual) Band Neutrophils % Lymphocytes % (Manual) Monocytes % (Manual) Anisocytosis PT INR APTT D-Dimer (Manual) 3095.28 Puncture Site O2 Saturation ABG pH ABG pCO2 ABG pO2 ABG HCO3 ABG Total CO2 ABG Base Excess Francisco Javier Test FiO2 % Sodium Potassium Chloride Carbon Dioxide Anion Gap BUN Creatinine Estimated GFR (MDRD) BUN/Creatinine Ratio Glucose Lactic Acid Calcium Magnesium Total Bilirubin AST ALT Alkaline Phosphatase Total Creatine Kinase Troponin I NT-Pro-B Natriuret Pep Total Protein Albumin Globulin Albumin/Globulin Ratio Procalcitonin Orders Category Date Time Status ABG DRAW REQUEST Stat CARDIO 11/11/18 11:06 Completed EKG-(ED ONLY) Stat CARDIO 11/11/18 11:09 Completed NEBULIZER TREATMENT Stat CARDIO 11/11/18 11:10 Completed ED IV/MEDIPORT/POWERPORT .ONCE EMERGENCY 11/11/18 11:09 Active ABG Stat LAB 11/11/18 11:06 Completed BLOOD CULTURE (ED ONLY) Stat LAB 11/11/18 11:17 Ordered CBC W/ AUTO DIFF Stat LAB 11/11/18 11:28 Completed COMPREHENSIVE METABOLIC PANEL Stat LAB 11/11/18 11:28 Completed CREATINE KINASE Stat LAB 11/11/18 11:28 Completed D-DIMER Stat LAB 11/11/18 11:50 Completed LACTIC ACID Stat LAB 11/11/18 11:50 Completed MAGNESIUM Stat LAB 11/11/18 11:28 Completed MANUAL DIFFERENTIAL Stat LAB 11/11/18 11:28 Completed NT-PROBNP Stat LAB 11/11/18 11:28 Completed PARTIAL THROMBOPLASTIN TIME Stat LAB 11/11/18 11:50 Completed PROCALCITONIN Stat LAB 11/11/18 11:28 Completed PT WITH INR Stat LAB 11/11/18 11:50 Completed TROPONIN I Stat LAB 11/11/18 11:28 Completed 0.9 % Sodium Chloride [Saline Flush] MEDS 11/11/18 11:09 Discontinued 1 syr IVF PRN PRN Ertapenem Sodium [Invanz] MEDS 11/11/18 11:47 Discontinued 1 gm .ROUTE .STK-MED ONE Ertapenem Sodium [Invanz] 1 gm MEDS 11/11/18 11:41 Discontinued 0.9 % Sodium Chloride [Sodium Chloride] 50 ml IV ONCE Ipratropium/Albuterol Neb [Duoneb] MEDS 11/11/18 11:09 Discontinued 1 vial NEB ONCE STA Sodium Chloride 0.9% [Sodium Chloride] 1,000 ml MEDS 11/11/18 13:17 Discontinued IV 75 mls/hr CHEST, 1V AP ONLY Stat RADS 11/11/18 11:09 Completed Medications Discontinued Medications Generic Name Dose Route Start Last Admin Trade Name Freq PRN Reason Stop Dose Admin Albuterol/Ipratropium 1 vial 11/11/18 11:09 11/11/18 11:15 Duoneb NEB 11/11/18 11:10 1 vial ONCE STA Administration Ertapenem 1 gm/ Sodium 50 mls @ 75 mls/hr 11/11/18 11:41 11/11/18 12:01 Chloride IV 11/11/18 12:20 75 mls/hr ONCE STA Administration Sodium Chloride 1,000 mls @ 75 mls/hr 11/11/18 13:17 11/11/18 13:28 Sodium Chloride IV 11/12/18 02:36 75 mls/hr .[id number] STA Administration Sodium Chloride 1 syr 11/11/18 11:09 11/11/18 12:02 Saline Flush IVF 1 syr PRN PRN Administration To flush IV Vital Signs: Temp Pulse Resp BP Pulse Ox 11/11/18 10:37 99.9 F H 126 H 22 118/77 86 L Departure - Departure Time of Disposition: 15:02 Disposition: TSF SHORT-TRM HOSP Discharge Problem: Spontaneous pneumothorax Condition: Critical Pt referred to PMD for follow-up: No IPMP verified?: No Allergies/Adverse Reactions: Allergies Penicillins Allergy (Mild, Verified 11/11/18 10:45) Anaphylaxis Home Medications: Ambulatory Orders Mesalamine [Pentasa] 500 mg PO BID 04/02/14 Digoxin [Lanoxin] 125 mcg PO DAILY 01/21/15 Garlic 100 mg PO DAILY 01/21/15 Metoprolol Tartrate [Lopressor] 25 mg PO TID 01/21/15 Montelukast Sodium [Singulair] 10 mg PO BEDTIME 01/21/15 Omeprazole [Prilosec] 40 mg PO QDAC 01/21/15 Pravastatin Sodium [Pravachol] 40 mg PO BEDTIME 01/21/15 Aspirin [Aspirin EC] 81 mg PO DAILYWM 07/28/16 Azelastine HCl [Astelin 0.1%] 1 spray NS BID 07/28/16 Budesonide/Formoterol Fumarate [Symbicort 160-4.5 Mcg Inhaler] 10.2 gm IH BID Azathioprine [Imuran] 50 mg PO DAILY 10/14/18 Cranberry Conc/C/Bacill Coag [Cranberry Tablet] 1 each PO DAILY 10/14/18 Losartan Potassium [Cozaar] 50 mg PO DAILY 10/14/18 Transfer Form Completed: Yes Disposition Discussed With: Patient, Family
[2018-11-11] MEDS ORDERED: INVANZ 1 GM in SODIUM CHLORIDE 50 ML IV STA (11:41)
[2018-11-11] MEDS ORDERED: INVANZ ONE (11:47)
--- NOTE | 2018-11-11 12:16 | DI ---
EXAM: Single view of the chest HISTORY: Shortness of breath. COMPARISON: Chest x-ray 10/14/2018 FINDINGS: There is a large right-sided pneumothorax with pleural separation of approximately 5.6 cm o f pleural separation. There is consolidation in the left lung. There is consolidation in the right mid lung. There appears to be some mild mediastinal shift to the left. The osseous structures are u nremarkable. IMPRESSION: 1. Large right pneumothorax with minimal leftward mediastinal shift may suggest a component of tensi on. 2. Consolidation in the left lung suggestive of pneumonia. Critical results called to Dr. Gabriel at 12:07 p.m. same day as exam.
[2018-11-11 12:24] VITALS: BMI 27.1
[2018-11-11] MEDS ORDERED: SODIUM CHLORIDE 1,000 ML IV STA (13:17)
== END 2018-11-11 15:15 | disposition short-term general hospital (02) ==
LOC: ED 10:36
DX: R06.02 Shortness of breath (principal); R05 Cough; R60.0 Localized edema; R06.00 Dyspnea, unspecified; R07.9 Chest pain, unspecified; J93.83 Other pneumothorax
CPT/HCPCS: 36415; 80053; 82550; 82803; 83605; 83735; 83880; 84145; 84484; 85007; 85025; 85379; 85610; 85730; 87040; 93005; 93010; 94640; 96365; 99285

== ENCOUNTER 2018-11-11 15:16 | Outpatient (CLI) | payer OTHER ==
[2018-11-11 12:24] VITALS: BMI 27.1
== END 2018-11-11 15:39 | disposition short-term general hospital (02) ==
LOC: AMBL 15:16
PROVIDERS: ATTEND Internal Medicine Geriatric Medicine
DX: J18.9 Pneumonia, unspecified organism (principal); J93.9 Pneumothorax, unspecified; R06.02 Shortness of breath; R05 Cough; K51.90 Ulcerative colitis, unspecified, without complications; R00.0 Tachycardia, unspecified

== ENCOUNTER 2018-12-25 09:48 | Outpatient (CLI) ==
[2018-12-25 10:09] VITALS: BP 130/70; TEMP 97.9
[2018-12-25] MEDS ORDERED: SODIUM CHLORIDE IV STA (10:09)
[2018-12-25] MEDS ORDERED: ENTYVIO IV STA (10:09)
[2018-12-25] MEDS ORDERED: TYLENOL PO STA (10:37)
== END 2018-12-25 09:49 | disposition home or self-care (01) ==
LOC: OPMED 09:48
PROVIDERS: ATTEND Internal Medicine Gastroenterology
DX: K51.311 Ulcerative (chronic) rectosigmoiditis with rectal bleeding (principal)
CPT/HCPCS: 96365

== ENCOUNTER 2019-01-08 09:52 | Outpatient (CLI) ==
[2019-01-08 10:02] VITALS: BP 150/78; TEMP 96.9
[2019-01-08] MEDS ORDERED: ENTYVIO IV STA (10:11)
[2019-01-08] MEDS ORDERED: SODIUM CHLORIDE IV STA (10:11)
== END 2019-01-08 09:53 | disposition home or self-care (01) ==
LOC: OPMED 09:52
PROVIDERS: ATTEND Internal Medicine Gastroenterology
DX: K51.311 Ulcerative (chronic) rectosigmoiditis with rectal bleeding (principal)
CPT/HCPCS: 96365

== ENCOUNTER 2019-01-14 12:30 | Outpatient (CLI) ==
--- NOTE | 2019-01-14 15:14 | DI ---
Examination: Chest two views Clinical history: Cough There is prominent hyperinflation of both lungs. No evidence of pneumothorax, effusion, coalescent i nfiltrate, or cardiac enlargement. There is mild aortic arch calcinosis. Impression: 1. Findings consistent with obstructive/restrictive pulmonary disease. No pneumonia or vascular con gestion.
== END 2019-01-14 12:31 | disposition home or self-care (01) ==
LOC: RAD 12:30
PROVIDERS: ATTEND Family Medicine
DX: K62.5 Hemorrhage of anus and rectum (principal); R05 Cough
CPT/HCPCS: 36415; 85025

== ENCOUNTER 2019-04-08 09:48 | Outpatient (CLI) | payer OTHER ==
[2019-04-08 10:12] VITALS: BP 154/72; TEMP 97.1
[2019-04-08] MEDS: ENTYVIO IV STA (10:50)
[2019-04-08] MEDS: SODIUM CHLORIDE IV STA (10:50)
[2019-04-08] MEDS: TYLENOL PO STA (10:53)
[2019-04-08] MEDS: BENADRYL PO STA (10:56)
== END 2019-04-08 09:49 | disposition home or self-care (01) ==
LOC: OPMED 09:48
PROVIDERS: ATTEND Internal Medicine Gastroenterology
DX: K51.90 Ulcerative colitis, unspecified, without complications (principal)
CPT/HCPCS: 36415; 80053; 85027; 96365